=== PATIENT | male | born 1950 | race Caucasian/White ===

== ENCOUNTER 2016-08-17 11:37 | Inpatient (IN) | payer MEDICARE ==
[~2016-08-17] VITALS: Ht 182.9 cm; Wt 53.4 kg
[2016-08-17] MEDS ORDERED: PROMOD LIQUID P30 M1 PO (12:21)
[2016-08-17] MEDS ORDERED: FOLIC ACID1 MG PO (12:23)
[2016-08-17] MEDS ORDERED: VITAMIN B-1100 M1 PO (12:24)
[2016-08-17] MEDS ORDERED: VITAMIN D31000 UNI2 PO (12:24)
[2016-08-17] MEDS ORDERED: MULTIPLE VITAMI1 TA1 PO (12:25)
[2016-08-17] MEDS ORDERED: MIRALAX17 GM PO (12:26)
[2016-08-17] MEDS ORDERED: FLOMAX0.4 MG PO (12:26)
[2016-08-17] MEDS ORDERED: CELEXA10 MG PO (12:40)
[2016-08-17] MEDS ORDERED: CELEXA20 MG PO (12:41)
[2016-08-17] MEDS ORDERED: BUSPAR10 MG PO (12:46)
[2016-08-17] MEDS ORDERED: REMERON15 MG PO (12:48)
[2016-08-17] MEDS ORDERED: KLONOPIN0.5 MG PO (12:48)
[2016-08-17] MEDS ORDERED: MUCINEX600 MG PO ×2 (12:50→12:51)
[2016-08-17] MEDS ORDERED: CLARITIN 10 MG10 MG PO (12:53)
--- NOTE | 2016-08-17 13:38 | NUR ---
PT WAS ADMITTED TO [facility] FROM [facility] FOR INCREASED AGGRESSION. IT WAS REPORTED THAT THE PT WAS AGGRESSIVE TOWARDS A STAFF MEMBER AND CURSING AT ANOTHER RESIDENT. ORIENTED TO PERSON ONLY. IT WAS REPORTED THAT THE PT WAS WANDERING THE HALLWAY LOOKING FOR HIS AND CHICKENS. RANDOM DELUSIONAL STATEMENTS MADE. PT IS A DNR PER LONG-TERM RECORDS. REVIEWED CODE STATUS WITH DAUGHTER CY WONG AND HE IS A DNR. REVIEWED VISITATION HOURS AND UNIT RULES. GAVE DAUGHTER DIRECT LINE NUMBER TO UNIT AND MY OFFICE NUMBER. CODE IS "[id number]". PT IS UNSTEADY ON HIS FEET AND REQUIRES ASSISTANCE. WILL CONTINUE TO MONITOR.
[2016-08-17 15:26] VITALS: BP 104/59; BMI 15.2
--- NOTE | 2016-08-17 19:45 | NUR ---
RECEIVED IN ROOM, WALKS WITH A SHUFFLE GAIT BACK AND FORTH TO NURSES STATION OR THE BATHROOM IN HIS ROOM. HE IS ORIENTED TO SELF ONLY, WITH POOR SHORT- TERM MEMORY RECALL. PROVIDE PRESCRIBED MEDICATIONS. REDIRECT AND REORIENT NEEDED. MEDICATION COMPLIANT, WITH POOR REDIRECTING DUE TO CURRENT MENTAL STATUS. NO AGGRESSION SHOWN TO STAFF AT THIS TIME. HE IS NOT COMPREHENDING INFORMATION. WILL CONTINUE WITH PLAN OF CARE.
[2016-08-17 20:01] VITALS: BP 110/68
--- NOTE | 2016-08-18 04:53 | NUR ---
ATIVAN 0.5 MG PO GIVEN FOR ANXIETY. EKG DONE AND C/O BEING VERY NERVOUS.
[2016-08-18 07:42] VITALS: BP 112/75
[2016-08-18 07:46] LABS: BASOPHILS 0.3 % (0.0-2.0); EOSINOPHILS 1.6 % (0-7); HEMATOCRIT 36.2 % (42.0-54.0); HEMOGLOBIN 12.1 g/dL (13.5-17.5); IMMATURE GRANULOCYTES 0.3 % (0-5); LYMPHOCYTES 19.1 % (15-50); MCH 30.3 pg (26.0-34.0); MCHC 33.4 g/dL (31.0-37.0); MCV 90.5 fL (80.0-100.0); MEAN PLATELET VOLUME 9.3 fL (7.4-10.4); MONOCYTES 7.9 % (2-11); NEUTROPHILS 70.8 % (40-80); PLATELET COUNT 245 10x3/uL (130-400); RDW 14.5 % (11.5-14.5); WBC 6.7 10x3/uL (4.8-10.8)
[2016-08-18 07:54] LABS: HEMOGLOBIN A1C 5.6 % (4.8-6.0)
[2016-08-18 08:11] LABS: ALBUMIN 3.8 g/dL (3.4-5.0); ALKALINE PHOSPHATASE 65 U/L (46-116); ALT (SGPT) 24 U/L (10-68); CALC OSMOLALITY 282 mosm/kg (275-300); CARBON DIOXIDE 24.1 mmol/L (21.0-32.0); CHLORIDE - SERUM 105 mmol/L (98-107); CHOL - HDL RATIO 4.5 ratio (2.3-4.9); CHOLESTEROL, TOTAL 201 mg/dL (0-200); GLUCOSE 89 mg/dL (74-106); HDL CHOLESTEROL 45 mg/dL (32-96); LDL CHOLESTEROL 134 mg/dL (0-100); POTASSIUM - SERUM 3.8 mmol/L (3.5-5.1); PROTEIN - SERUM 7.7 g/dL (6.4-8.2); SODIUM 140 mmol/L (136-145); THYROID STIMULATING HORMONE 1.03 uIU/mL (0.36-3.74); TRIGLYCERIDE 114 mg/dL (30-200); UREA NITROGEN 26 mg/dL (7-18); eGFR NON AFRICAN AMERICAN 79 mL/min (90-120)
--- NOTE | 2016-08-18 09:28 | NUR ---
B) Patient is very confused, he can not remember from minute to minute. He ambulates with a very slow shuffle and he is unsteady. He did not sleep last night and he has said his head feels fuzzy. Patient says he needs to use the bathroom about every 5 minutes. He is on a every one hour toilet schedule, will monitor. He has been started on flomax today. I) Provide prescribed meds. R) Patient is compliant with meds and he has accepted redirection without aggression. P) Continue plan of care.
[2016-08-18 13:36] VITALS: Ht 182.9 cm; Wt 53.4 kg
[2016-08-18 14:42] LABS: APPEARANCE CLEAR (CLEAR); COLOR YELLOW (YELLOW); SPECIFIC GRAVITY 1.015 (1.005-1.020)
[2016-08-18 14:43] LABS: BACTERIA FEW /hpf (NONE SEEN); BILIRUBIN NEGATIVE (NEGATIVE); EPITHELIAL CELLS OCC /hpf (0-5); GLUCOSE NEGATIVE (NEGATIVE); KETONE NEGATIVE (NEGATIVE); LEUKOCYTE ESTERASE TRACE (NEGATIVE); NITRITE NEGATIVE (NEGATIVE); PROTEIN NEGATIVE (NEGATIVE); UROBILINOGEN NORMAL (NORMAL); WHITE CELLS - URINE OCC /hpf (0-5)
[2016-08-18 19:30] VITALS: BP 116/67
--- NOTE | 2016-08-18 21:00 | NUR ---
RECEIVED IN DAYROOM SITTING IN CHAIR, ISOLATED FROM PEERS. CALM AND COOPERATIVE WITH ASSESSMENT AND CARE. PROVIDE PRESCRIBED MEDICATIONS. REDIRECT AND REORIENT NEEDED. MEICATION COMPLIANT. WILL CONTINUE PLAN OF CARE.
[2016-08-19 06:14] LABS: RAPID PLASMA REAGIN Non Reactive (Non Reactive)
[2016-08-19 07:53] VITALS: BP 126/70
[2016-08-19 08:18] LABS: FOLATE (FOLIC ACID) - SERUM >20.0 ng/mL (>3.0)
[2016-08-19 10:17] LABS: VITAMIN D 25 HYDROXY 60.5 ng/mL (30.0-100.0)
--- NOTE | 2016-08-19 18:40 | NUR ---
B.) Alert and oriented to self only, has no insight to reason for hospitalization. I.) Administer medications and monitor compliance. Redirect for any inappropriate behavior. Reorient as need. R.) Compliant with medications, calm and pleasant, isolates on safa cooperative with care. P.) Continue with plan of care.
[2016-08-19 19:55] VITALS: BP 101/53
--- NOTE | 2016-08-20 00:23 | NUR ---
B) Recieved ambulating in the day room, alert and oriented to self, unaware of surroundings or that he is in a hospital, keeps to himself, I) Administered perscribed medications, redirected and oriented as needed, R) Medication compliant, calm and cooperative with staff, P) Continue plan of care.
[2016-08-20 09:27] VITALS: BP 108/69
--- NOTE | 2016-08-20 09:30 | NUR ---
B) Patient is awake and alert, he is oriented to his name only, he is confused asks the same question over and over. He can not comprehend, he is independent to ambulate, but he shuffles and he is unsteady. I) Provide prescribed meds. R) Patient is compliant with meds and he usually redirects without any agitation. P) Continue plan of care.
[2016-08-20 19:45] VITALS: BP 141/79
--- NOTE | 2016-08-21 03:08 | NUR ---
B) Recieved sitting in the day room, alert and oriented to self, confused and disoriented, friendly to staff, unable to redirect due to not being able to process information, I) Administered perscribed medications, PRN Ativan 0.5 mg PO given at 2159, R) Medication compliant, up several times at night, wanders P) Continue plan of care, continue to monitor.
[2016-08-21 08:01] VITALS: BP 123/84
--- NOTE | 2016-08-21 13:21 | NUR ---
Patients sister called to check on him and did give her an update. Patient remains confused with poor short term memory recall, did not sleep well last night, but he has not shown any agitation or aggression today. Sister verbalized understanding and thanked us for our care.
--- NOTE | 2016-08-21 14:00 | NUR ---
PATIENT'S SPOUSE CALLED AND CHECKED ON HER SPOUSE AND THEN SHE STARTED TELLING ME ABOUT HER BREAKING HER HIP AND SAID "THAT'S WHEN HE WENT OFF THE DEEP END" SPOUSE CONTINUED DISCUSSING THE BREAK IN HER HIP AND THAT SHE WAITED FOR A DAY BEFORE SHE WENT TO THE DR. AND THEN SHE HAD TO WAIT SEVERAL HOURS FOR AN XRAY. CONTINUED FOR AWHILE UNTIL I EXPLAINED THAT I NEEDED TO GO TO GIVE MEDICATIONS, SHE SAID "OK I KNOW YOU'RE BUSY, I'LL LET YOU GO".
--- NOTE | 2016-08-21 14:30 | NUR ---
PATIENT IS AWAKE, HE IS VERY CONFUSED, POOR SHORT TERM MEMORY RECALL, HE IS VERY ANXIOUS, UP AND DOWN FROM THE CHAIR, GOING TO THE BATHROOM EVERY 5-10 MINUTES AND WHEN STAFF GO WITH HIM HE IS NOT ABLE TO VOID URINE. HE SAYS HE HURTS, GETS FULL. PATIENT IS ON MEDICATION FOR THIS, BUT HE IS FORGETFUL AND GETS FOCUSED ON ONE THING AND TALKS AND TALKS ABOUT IT. HE IS REPETITIVE IN HIS QUESTIONS EVEN IF STAFF JUST REDIRECTED HIM IN THE SAME BREATH. I) PROVIDE PRESCRIBED MEDS, REORIENTATE TO REALITY, PROVIDE EVERY ONE HOUR BLADDER TRAINING SCHEDULE. R) PATIENT BELIEVES HE IS AT WORK AND HE ASKS FREQUENTLY IF HE IS GOING TO WORK OVER ON A 16 HOUR SHIFT. REDIRECTED TO REALITY THAT HE IS A PATIENT AND HE IS IN THE HOSPITAL. PATIENT AMBULATES, BUT HE IS UNSTEADY HAS A SHUFFLING GAIT. PATIENT IS COMPLIANT WITH MEDICATION. P) CONTINUE PLAN OF CARE.
--- NOTE | 2016-08-21 16:49 | NUR ---
PATIENT IS ANXIOUS, HE KEEPS POPPING UP OUT OF HIS SEAT SAYING HE HAS TO PEE, EXPLAINED TO PATIENT THAT HE IS ON AN EVERY ONE HOUR BLADDER SCHEDULE, PATIENT IS SHAKING AND UPSET, ASKS ABOUT A S[place]IAGO AND HIS AND THE TOILET AND HAVING A BED AND HAVING SOMETHING TO EAT. PROVIDED PATIENT ATIVAN 0.5 MG PO GIVEN NOW.
--- NOTE | 2016-08-21 17:10 | NUR ---
PATIENT IS EATING DINNER IN THE DINING ROOM, HE IS EATING WELL AND CALMER AT THIS TIME.
[2016-08-21 19:22] VITALS: BP 115/68
--- NOTE | 2016-08-21 21:34 | NUR ---
RECEIVED IN DAYROOM. SETTING IN CHAIR KEEPING TO HIMSELF. CALM AND COOPERATIVE WITH CARE AND ASSESSMENT. NO SIGNS OF AGGRESSION. REDIRECT AND REORIENT NEEDED. REINFORCE FALLS SAFETY. PM MEDS GIVEN ORDERED. RESTING IN BED EYES CLOSED AT THIS TIME. CONTINUE PLAN OF CARE
[2016-08-22 09:11] VITALS: BP 133/84
--- NOTE | 2016-08-22 10:51 | HP ---
PATIENT: DRE ÁLVAREZ MEDICAL RECORD: [id number] ACCOUNT: [id number] LOCATION:[facility] : 50 ADMISSION DATE: 08/17/16 HISTORY AND PHYSICAL EXAMINATION Initial Psychiatric Workup IDENTIFYING DATA: [place] [facility] [place] for this 66-year-old white male. HISTORY OF PRESENT ILLNESS: This patient has a preexisting diagnosis of Alzheimer dementia and he is currently a resident of [facility] in [place]. The patient has been housed there for some period of time, but lately his behavior has worsened. He has become aggressive toward staff and even towards other residents and because of this, the patient was transferred for further evaluation from a medical and psychiatric standpoint. The patient has a long past history of alcoholism. He recently has been showing some unsteady gait and complains occasionally of dizziness. Because of worsening dementia and aggressive behavior, the patient is now admitted. PAST MEDICAL HISTORY: Significant for benign prostatic hypertrophy, hyperlipidemia, vitamin D deficiency, seizure disorder. MEDICATIONS: At the time of admission included folic acid, vitamin D, thiamine, multivitamins, MiraLax, Flomax, BuSpar, Klonopin, Remeron and Mucinex. FAMILY HISTORY: Noncontributory. SOCIAL HISTORY: The patient is . He has 2 daughters. According to one of his daughters, the may have some mental health issues of her own. The patient had been living near [place], [place], but as mentioned, has been transferred for care home care in the past. No history of illicit drug use. ALLERGIES: None listed. MENTAL STATUS: On interview, the patient is clearly confused. He is not aware that he is in a hospital. When asked about him having been in [place] in a care home, he replied that he has never been to [place]. His mood is slightly anxious. Affect is very shallow. Speech is quite terse and they are frequent word finding pauses as well as tangentiality. There is some mild echolalia. Gait is noted to be unsteady and shuffling. Content of thought is apparently positive for auditory hallucinations. The patient states that he hears his 's voice. Also, possible visual hallucinosis as well. He is oriented to person only. Memory is impaired for remote, intermediate and short-term events. Concentration is exceedingly poor. Judgment and insight are both lacking. DIAGNOSES: AXIS I: Dementia associated with alcoholism, ICD code F03.91. AXIS II: No diagnosis. AXIS III: Benign prostatic hypertrophy, hyperlipidemia, history of seizure disorder. AXIS IV: Moderate. AXIS V: 36. HISTORY AND PHYSICAL [id number] DRE ÁLVAREZ PLAN: 1. The patient is admitted for further evaluation from a medical and psychiatric standpoint. 2. Daily supportive therapy. 3. We will coordinate with family regarding aftercare. TRANSINT:[id number] Voice Confirmation ID: [id number] DOCUMENT ID: [id number] NANCY MICHELLE III, MD at 1051 CC: [id number] DICTATION DATE: 08/18/16 1230 RECYCLING TECH: 08/18/16 1337 ADM IN [place] [id number] [place] [id number]
--- NOTE | 2016-08-22 11:40 | NUR ---
P.) Alert and oriented to name only, has no insight to reason for hospitalization. I.) Administer medications and monitor compliance, monitor for any aggresive behavior. R.) Compliant with medications, poor short term memory, will repeat same statement or question and becomes fixated on using bathroom every 15 minuted, forgets he has went to bathroom. Is redirectable but unable to retain information. No aggression. P.) Continue plan of care.
--- NOTE | 2016-08-22 14:45 | PN ---
PATIENT:DRE ÁLVAREZ MEDICAL RECORD: [id number] LOCATION:[facility] ADMISSION DATE: 08/17/16 PROGRESS NOTE DATE OF SERVICE: 08/19/2016 SUBJECTIVE: The patient's case was discussed with staff. He has no new complaint. OBJECTIVE: The patient is disorganized with poor insight about his condition. He is quite anxious. ASSESSMENT: No change in diagnoses. PLAN: Current medicines and therapies have been reviewed, both will be maintained. His long-term prognosis is guarded. TRANSINT:[id number] Voice Confirmation ID: [id number] DOCUMENT ID: [id number] SARAH MCCLURE MD at 1445 CC: [id number] DICTATION DATE: 08/19/16 1351 PASSENGER SERVICE SUPERVISOR: 08/19/16 1531 ADM IN [address] [address]
[2016-08-22 20:34] VITALS: BP 133/80
--- NOTE | 2016-08-23 02:46 | NUR ---
RECEIVED IN HALLWAY. WALKING FROM HIS ROOM TO NURSES STATION. CALM AND COOPERATIVE WITH CARE AND ASSESSMENT. CONFUSED. VERY SHORT MEMORY. NO SIGNS OF AGGRESSION. REDIRECT AND REORIENT NEEDED. PM MEDS GIVEN ORDERED. RESTING IN BED WITH EYES CLOSED AT THIS TIME. CONTINUE PLAN OF CARE
--- NOTE | 2016-08-23 10:18 | PN ---
PATIENT:DRE ÁLVAREZ MEDICAL RECORD: [id number] LOCATION:[facility] ADMISSION DATE: 08/17/16 PROGRESS NOTE DATE OF SERVICE: 08/22/2016 SUBJECTIVE: No new complaint. OBJECTIVE: Staff reports the patient has been doing fairly well over the weekend. He does get anxious from time to time, but is fairly easily redirected. On exam, the patient remains quite confused. He is oriented only to person. He is pleasant on approach. Speech remains quite terse and vague. Content of thought is negative for clear cut psychosis. Memory is impaired in all phases. ASSESSMENT: Alcohol-related dementia. PLAN: 1. Continue Klonopin 1 mg t.i.d. and Namenda 5 mg b.i.d. 2. Discontinue BuSpar. 3. Continue other medications and supportive therapy. TRANSINT:[id number] Voice Confirmation ID: [id number] DOCUMENT ID: [id number] NANCY MICHELLE III, MD at 1018 CC: [id number] DICTATION DATE: 08/22/16 1201 SYSTEMS ADMIN: 08/22/16 1318 ADM IN [place] [id number] [place] [address]
--- NOTE | 2016-08-23 10:24 | NUR ---
Nutrition Follow Up: Chart reviewed. Diet: Regular; Ensure with meals PO Intake: 97% (9 meal avg) +BM 08/18/16 - no BM x 5 days Wt gain of 13# since admit? No new labs Meds: Megace, Thiamine, MV, Folic Acid Pt with excellent po intake at this time. Rec continue current diet, supplement regimen. Rec bowel regimen. Rec continue appetite stimulant. RD following.
[2016-08-23 12:33] VITALS: BP 131/89
--- NOTE | 2016-08-23 13:00 | NUR ---
B.) Alert and oriented to name only . I.) Administer medications and monitor compliance. redirect and reorient as need. R.) Compliant with medications, no aggressive or threatening behavior, calm and cooperative. Has short term memory. Safety maintained. P.) Continue plan of care.
[2016-08-23 20:00] VITALS: BP 126/84
--- NOTE | 2016-08-23 21:39 | NUR ---
RECEIVED IN DAYROOM. SETTING IN CHAIR WITH PEERS AT HIS SIDE. VERY CONFUSED. CAN NOT REMEMBER INSTRUCTIONS. CALM AND COOPERATIVE WITH CARE AND ASSESSMENT. NO SIGNS OF AGGRESSION. REDIRECT AND REORIENT NEEDED. PM MEDS GIVEN ORDERED. RESTING IN BED EYES CLOSED AT THIS TIME. CONTINUE PLAN OF CARE
[2016-08-24 08:08] VITALS: BP 110/72
--- NOTE | 2016-08-24 10:05 | NUR ---
B.) Alert and oriented to name only, poor short term memory. I.) Administer medications and monitor compliance, redirect and reorient as need. Monitor safety. R.) Compliant with medications, cooperative with care with no aggressive or threatening behavior. Unable to reorient, poor short term memory, unable to retain information, repeative actions. Safety maintained. P.) Continue plan of care.
--- NOTE | 2016-08-24 10:36 | PN ---
PATIENT:DRE ÁLVAREZ MEDICAL RECORD: [id number] LOCATION:[facility] ADMISSION DATE: 08/17/16 PROGRESS NOTE DATE OF SERVICE: 08/23/2016 SUBJECTIVE: No new complaint. OBJECTIVE: The patient continues to exhibit a great deal of anticipatory anxiety. He obsesses over urination and other routine matters. He is generally cooperative and pleasant, but is anxious virtually all of the time. On exam, mood is indeed anxious. Affect is rather shallow. Speech is repetitive. Content of thought is focused on somatic concerns. Sensorium shows no change. ASSESSMENT: No change in diagnosis. PLAN: 1. We will add an SSRI to aid in anxiety control -- we will start Lexapro 10 mg daily. 2. Continue other medications as currently ordered. 3. Continue supportive therapy. TRANSINT:[id number] Voice Confirmation ID: [id number] DOCUMENT ID: [id number] NANCY MICHELLE III, MD at 1036 CC: [id number] DICTATION DATE: 08/23/16 1124 CEMENT CONVEYOR OPERATOR: 08/23/16 1154 ADM IN [facility] [address] [place] [address]
[2016-08-24 20:13] VITALS: BP 117/70
--- NOTE | 2016-08-25 00:28 | NUR ---
B) Recieved in patient room, alert and oriented to self, calm and very confused with no short term memory, I) Administered perscribed medications, redirected and oriented as needed, R) medication compliant, resting quietly in bed, P) Continue plan of care, continue to monitor.
--- NOTE | 2016-08-25 05:05 | PN ---
PATIENT:DRE ÁLVAREZ MEDICAL RECORD: [id number] LOCATION:[facility] ADMISSION DATE: 08/17/16 PROGRESS NOTE DATE OF SERVICE: 08/24/2016 SUBJECTIVE: No new complaint. OBJECTIVE: Staff reports the patient appears to be calmer. He is not quite as obsessed with bodily functions as he had been 24 hours ago. He has been cooperative with staff regarding medication. On exam, mood is pleasant. Affect is still shallow. Speech is terse. Content of thought still focuses mainly on somatic concerns, but not in the same overly obsessional fashion that was noted previously. Sensorium is unchanged. ASSESSMENT: No change in diagnosis. PLAN: 1. Continue all current medications. 2. Continue supportive therapy. TRANSINT:[id number] Voice Confirmation ID: [id number] DOCUMENT ID: [id number] NANCY MICHELLE III, MD at 0505 CC: [id number] DICTATION DATE: 08/24/16 1104 ICE CREAM MACHINE OPERATOR: 08/24/16 1204 ADM IN [place] [id number] [place] [id number]
[2016-08-25 07:43] VITALS: BP 115/72
--- NOTE | 2016-08-25 09:30 | NUR ---
PATIENT IS AWAKE, ORIENTED TO SELF ONLY, HE GETS ON ONE SUBJECT AND REPEATS HIMSELF OVER AND OVER, HE NEEDS MUCH REDIRECTION WITH TOILETING SCHEDULE. PATIENT IS CONFUSED AND HAS POOR SHORT TERM MEMORY RECALL. HE WILL TRY TO USE THE BATHROOM EVERY 5 MINUTES, BUT DOES NOT VOID, JUST WALKS IN THE BATHROOM AND SAYS HE NEEDS TO GO.
--- NOTE | 2016-08-25 12:56 | NUR ---
PATIENTS SISTER CALLED TO CHECK ON HIM, REPORTED THAT PATIENT IS CALM AND EATING WELL.
--- NOTE | 2016-08-25 15:54 | NUR ---
B) PATIENT IS AWAKE AND ALERT, HE IS ORIENTED TO SELF, HE HAS POOR SHORT TERM MEMORY RECALL, HE IS CONFUSED, BUT HE IS LESS ANXIOUS TODAY THAN HE HAS BEEN, HE HAS A SHUFFLING GAIT, USES A WALKER IF PROMPTED. I) PROVIDE PRESCRIBED MEDS. R) PATIENT IS COMPLIANT WITH MEDS AND HE IS REDIRECTING EASIER TODAY, NO AGGRESSION SEEN. P) CONTINUE PLAN OF CARE.
[2016-08-25 19:30] VITALS: BP 138/89
[2016-08-26 08:36] VITALS: BP 124/74
--- NOTE | 2016-08-26 10:37 | PN ---
PATIENT:DRE ÁLVAREZ MEDICAL RECORD: [id number] LOCATION:[facility] ADMISSION DATE: 08/17/16 PROGRESS NOTE DATE OF SERVICE: 08/25/2016 SUBJECTIVE: No new complaint. OBJECTIVE: Staff reports the patient continues to do well. He is much less anxious and restless. On exam, mood is euthymic. Affect is bland. Speech is terse. Content of thought focused on somatic concerns. Sensorium is unchanged. ASSESSMENT: No change in diagnosis. PLAN: 1. Maintain all current medications. 2. Continue supportive therapy. TRANSINT:[id number] Voice Confirmation ID: [id number] DOCUMENT ID: [id number] NANCY MICHELLE III, MD at 1037 CC: [id number] DICTATION DATE: 08/25/16 1249 PARTS WASHER: 08/25/16 1315 ADM IN [place] [id number] [place] [address]
--- NOTE | 2016-08-26 12:37 | NUR ---
(B)RECEIVED PATIENT SITTING IN A CHAIR AT THE NURSES STATION. ORIENTED TO SELF ONLY RELATING "CAME FROM HOME MY MOMMA AND DADDY'S HOUSE." POOR INSIGHT INTO THE REASON FOR HOSPITALIZATION RELATING "GET EDUCATION ON LIFE." PREOCCUPIED WITH GOING TO THE BATHROOM AND WHERE THE BATHROOM IS LOCATED. PATIENT WILL PLACE HIS HANDS ON BOTH SIDES OF HIS FACE HE SPEAKS. STUTTERS AT TIMES. COOPERATIVE WITH STAFF REQUEST. (I)ADMINSITER MEDS AND MONITOR COMPLIANCE. REORIENT NEEDED. (R)MED COMPLIANT. REORIENTS HOWEVER REQUIRES FREQUENT REORIENTATION DUE TO IMPAIRED ABILITY TO RETAIN INFORMATION. (P)CONTINUE POC AND MAINTAIN FALL PRECAUTIONS.
--- NOTE | 2016-08-26 18:12 | PN ---
PATIENT:DRE ÁLVAREZ MEDICAL RECORD: [id number] LOCATION:[facility] ADMISSION DATE: 08/17/16 PROGRESS NOTE DATE OF SERVICE: 08/26/2016 SUBJECTIVE: No new complaint. OBJECTIVE: The patient shows occasional irritability. He had been overall has done well. He is tolerating medications without difficulty, much less anxious. On exam, mood euthymic. Affect bland. Speech is terse. Content of thought focuses on somatic concerns. Sensorium is unchanged. ASSESSMENT: No change in diagnosis. PLAN: 1. Continue present medications. 2. Continue supportive therapy. TRANSINT:[id number] Voice Confirmation ID: [id number] DOCUMENT ID: [id number] NANCY MICHELLE III, MD at 1812 CC: [id number] DICTATION DATE: 08/26/16 1140 CUFF MATCHER: 08/26/16 1317 ADM IN [facility] [address] [place] [address]
[2016-08-26 19:30] VITALS: BP 111/64
--- NOTE | 2016-08-26 23:30 | NUR ---
RECEIVED IN DAYROOM SITTING IN CHAIR. CALM AND COOPERATIVE WITH CARE AND ASSESSMENT. SEE NURSES FLOW SHEET FOR MORE DETAILED INFORMATION. WILL COMTINUE WITH PLAN OF CARE.
[2016-08-27 10:37] VITALS: BP 123/75
--- NOTE | 2016-08-27 13:06 | NUR ---
SPOKE WITH PATIENT'S SISTER. UPDATE ON CONDITION GIVEN AND QUESTIONS ANSWERED. VERBALIZED UNDERSTANDING.
--- NOTE | 2016-08-27 15:05 | NUR ---
RECEIVED THIS AM SITTING IN CHAIR IN HALLWAY AT NURSES STATION.ORIENTED TO SELF ONLY.HAS SHORT TERM MEMORY LOSS.REPEATS HIMSELF OVER AND OVER .AMB.WITH SHUFFLE AND WALKER.ENCOURAGED TO KEEP WALKER DOWN ON IT'S WHEELS.WILL CONTINUE WITH PLAN OF CARE,MONITOR FOR SAFETY AND CHANGES.
[2016-08-27 20:00] VITALS: BP 111/58
--- NOTE | 2016-08-28 01:56 | NUR ---
B) Recieved sitting in a chair in the day room, alert and oriented to self , keeps to himself, quiet and calm, I) Administered perscribed, redirected and oriented as needed, R) Medication compliant, resting quietly now, P) Continue plan of care, continue to monitor.
--- NOTE | 2016-08-28 08:31 | NUR ---
B) Patient is awake and oriented to self only, he has poor short term memory and he asks the same question in repetition every couple of minutes. He says he needs to use the bathroom every 5 minutes. I) Provide prescribed meds, redirect to bathroom schedule with explaination as needed. R) Patient requires multiple prompts to stay on toileting schedule. Patient has not shown any aggression or anxiety. P) Continue plan of care.
[2016-08-28 09:55] VITALS: BP 110/62
--- NOTE | 2016-08-28 17:39 | NUR ---
Patients sister called and checked on him today. Patient is doing well, he has not shown any aggression or anxiety today.
[2016-08-28 19:30] VITALS: BP 124/76
--- NOTE | 2016-08-28 22:24 | NUR ---
RECEIVED IN DAYROOM. SETTING IN RECLINER WITH PEERS AT HIS SIDE. CALM AND COOPERATIVE WITH CARE AND ASSESSMENT. NO SIGNS OIF AGGRESSION. REDIRECT AND REORIENT NEEDED. PM MEDS GIVEN ORDERED. RESTING EYES CLOESED AT THIS TIME . CONTINUE PLAN OF CARE
[2016-08-29 10:26] VITALS: BP 143/82
--- NOTE | 2016-08-29 10:30 | NUR ---
B.) Alert and orient to name, states no to knowing place and time. I.) Adm prescribed medications and monitor compliance. Redirect and reorient as need. R.) Compliant with medications, pleasant and cooperative with care. P.)Continue plan of care.
[2016-08-29] MEDS ORDERED: MEGACE40 MG PO (11:45)
[2016-08-29] MEDS ORDERED: LEXAPRO10 MG PO (11:46)
[2016-08-29] MEDS ORDERED: NAMENDA5 MG PO (11:46)
[2016-08-29] MEDS ORDERED: KLONOPIN1 MG PO (11:46)
[2016-08-29 20:26] VITALS: BP 132/75
--- NOTE | 2016-08-29 21:55 | NUR ---
RECEIVED IN BEDROOM. LAYING IN BED WITH EYES CLOSED. RESPONDS TO VOICE. CALM AND COOPERATIVE WITH CARE AND ASSESSMENT. NO SIGNS OF AGGRESSION. ENCOURAGE TO ASK FOR ASSIST TO BATHROOM. PM MEDS GIVEN ORERED. RESTING EYES CLOSED AT THIS TIME. CONTINUE PLAN OF CARE
[2016-08-30 10:14] VITALS: BP 116/66
--- NOTE | 2016-08-30 10:40 | PN ---
PATIENT:DRE ÁLVAREZ MEDICAL RECORD: [id number] LOCATION:[facility] ADMISSION DATE: 08/17/16 PROGRESS NOTE DATE OF SERVICE: 08/29/2016 SUBJECTIVE: No new complaint. OBJECTIVE: The patient has done well over the last several days. No new problems noted. Behavior has been under very good control. On exam, mood is euthymic. Affect bland. Speech is terse. Content of thought is negative for overt psychosis. Sensorium is unchanged. ASSESSMENT: No change in diagnosis. PLAN: 1. Continue current treatment plan. 2. Anticipate discharge tomorrow. TRANSINT:[id number] Voice Confirmation ID: [id number] DOCUMENT ID: [id number] NANCY MICHELLE III, MD at 1040 CC: [id number] DICTATION DATE: 08/29/16 1141 PICK OUT HAND: 08/29/16 1907 ADM IN [facility] [address] [place] [address]
--- NOTE | 2016-08-30 10:48 | NUR ---
Nutrition Follow Up: Chart reviewed. Noted pt scheduled to d/c today. Diet: Regular; Ensure TID PO Intake: 91% (9 meal avg) Meds and labs noted - Pt is on Megace +BM Pt with excellent po intake. Rec continue current diet and supplement regimen. Rec continue Megace. RD following.
--- NOTE | 2016-08-30 12:16 | NUR ---
B.) Received this am alert and oriented to name only, patient states "I dont know to place and time." very quiet and pleasant. I.) Administer medications and monitor compliance, redirect and reorient as need. Monitor safety. R.) Compliant with medications. Cooperative with care, no aggression. P) Continue with plan of care to discharge today.
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
== END 2016-08-30 21:46 | DRG 897 ==
LOC: D.PSYCH 11:37
PROVIDERS: ADMIT Psychiatry & Neurology Psychiatry
DX: F10.27 Alcohol dependence with alcohol-induced persisting dementia (principal); E46 Unspecified protein-calorie malnutrition; G40.909 Epilepsy, unspecified, not intractable, without status epilepticus; E78.5 Hyperlipidemia, unspecified; N40.0 Benign prostatic hyperplasia without lower urinary tract symptoms; F41.8 Other specified anxiety disorders; G47.00 Insomnia, unspecified; K59.00 Constipation, unspecified; E55.9 Vitamin D deficiency, unspecified; Z74.09 Other reduced mobility

== ENCOUNTER 2018-03-15 03:49 | Inpatient (IN) | payer MEDICARE ==
[~2018-03-15] VITALS: Ht 172.7 cm; Wt 64.1 kg
--- NOTE | ~2018-03-15 | PN ---
PATIENT:DRE ÁLVAREZ MEDICAL RECORD: [id number] LOCATION:GORGE Shane ADMISSION DATE: 03/15/18 PROGRESS NOTE DATE OF SERVICE: 03/18/2018 SUBJECTIVE: The patient's case was discussed with staff. He has no new complaint. OBJECTIVE: The patient is in good behavioral control with limited insight about his condition. He does tolerate his medicines well. Eye contact is fair. Concentration is fair. ASSESSMENT: No change in diagnoses. PLAN: The patient is taking Celexa with which I think has a questionable clinical indication. Medicine is inexpensive and well tolerated, but in an effort to streamline his medication regimen to only medicines that have clear and demonstrable beneficial effects, I am going to discontinue the Celexa. He will be monitored for clinical changes associated with this discontinuation. TRANSINT:[id number] Voice Confirmation ID: [id number] DOCUMENT ID: [id number] SARAH MCCLURE MD at 1320 CC: [id number] DICTATION DATE: 03/18/18 1104 MONKEY KEEPER: 03/18/18 1145 ADM IN [facility] [address] [id number]
--- NOTE | ~2018-03-15 | PN ---
PATIENT:DRE ÁLVAREZ MEDICAL RECORD: [id number] LOCATION:GORGE Jose Rafael112 ADMISSION DATE: 03/15/18 PROGRESS NOTE DATE OF SERVICE: 03/24/2018 SUBJECTIVE: The patient's case was discussed with staff. He has no new complaint. OBJECTIVE: The patient slept 9 hours last night, which is encouraging. His appetite continues to be poor with him only eating about half of the food that was presented to him yesterday. He has not been aggressive. In fact, he has been quite pleasant. ASSESSMENT: No change in diagnoses. PLAN: The patient will be maintained on current medicines, which I have reviewed. He is not going to be allowed to return to the long term in [place] because of his behaviors. I think his behaviors are better and he could be reasonably managed on a dementia unit, but they are not going to accept him. The director social welfare is looking for another placement for him and hopefully that will be something that can happen in the next few days. TRANSINT:[id number] Voice Confirmation ID: [id number] DOCUMENT ID: [id number] SARAH MCCLURE MD at 0949 CC: [id number] DICTATION DATE: 03/24/1814 GRANITE COUNTERTOP INSTALLER: 03/24/18 0837 ADM IN [place] [id number] [place] [id number]
--- NOTE | ~2018-03-15 | PN ---
PATIENT:DRE ÁLVAREZ MEDICAL RECORD: [id number] LOCATION:GORGE Mantilla112 ADMISSION DATE: 03/15/18 PROGRESS NOTE DATE OF SERVICE: 03/29/2018 SUBJECTIVE: The patient's case was discussed with staff. He has no new complaint. OBJECTIVE: The patient is poorly oriented. He is pleasant and cooperative and has not been aggressive. ASSESSMENT: No change in diagnoses. PLAN: The patient will be transitioned out of the hospital today. He is going to go to a longterm in [facility] that is closer to his mother. TRANSINT:[id number] Voice Confirmation ID: [id number] DOCUMENT ID: [id number] SARAH MCCLURE MD at 1710 CC: [id number] DICTATION DATE: 03/29/18 1405 SURGICAL CLINICAL REVIEWER: 03/29/18 1412 DIS IN 03/29/18 [place] [id number] [place] [address]
--- NOTE | ~2018-03-15 | PN ---
PATIENT:DRE ÁLVAREZ MEDICAL RECORD: [id number] LOCATION:GORGE JiOsbaldoEla ADMISSION DATE: 03/15/18 PROGRESS NOTE DATE OF SERVICE: 03/21/2018 SUBJECTIVE: The patient's case was discussed with staff. He has no new complaint. OBJECTIVE: The patient denies intent to harm himself or others. He does tolerate his medicines well. Eye contact is poor. He is not eating very well. ASSESSMENT: No change in diagnoses. PLAN: Brief supportive and educational interventions were made. Long-term prognosis is guarded. TRANSINT:[id number] Voice Confirmation ID: [id number] DOCUMENT ID: [id number] SARAH MCCLURE MD at 0849 CC: [id number] DICTATION DATE: 03/21/18 1549 REPAIR MANAGER: 03/21/18 1823 ADM IN [place] [id number] [place] [id number]
--- NOTE | ~2018-03-15 | PN ---
PATIENT:DRE ÁLVAREZ MEDICAL RECORD: [id number] LOCATION:GORGE Mantilla112 ADMISSION DATE: 03/15/18 PROGRESS NOTE DATE OF SERVICE: 03/26/2018 SUBJECTIVE: The patient's case was discussed with staff. He has no new complaint. OBJECTIVE: The patient denies intent to harm himself or others. He tolerates his medicines well. Eye contact is fair. Concentration is fair. He has not been aggressive. ASSESSMENT: No change in diagnoses. PLAN: The long term in [place] has turned him down because of his behaviors. Other resources or placement is being sought. The patient's Megace seems to be working reasonably well as his appetite has improved. I know he is taking a large dose of Klonopin, but he has a history of alcoholism and has a tolerance to it and it is keeping him calm without making him sedated. TRANSINT:[id number] Voice Confirmation ID: [id number] DOCUMENT ID: [id number] SARAH MCCLURE MD at 1402 CC: [id number] DICTATION DATE: 03/26/18 1430 COLOR PRINTER OPERATOR: 03/26/18 1504 ADM IN [facility] [address] [place] [address]
--- NOTE | ~2018-03-15 | PN ---
PATIENT:DRE ÁLVAREZ MEDICAL RECORD: [id number] LOCATION:GORGE Shane ADMISSION DATE: 03/15/18 PROGRESS NOTE DATE OF SERVICE: 03/25/2018 SUBJECTIVE: The patient's case was discussed with staff. He has no new complaint. OBJECTIVE: The patient is in good behavioral control. He has poor insight about his condition. He has not been verbally aggressive or physically aggressive today. ASSESSMENT: No change in diagnoses. PLAN: Supportive and educational interventions were made. Long-term prognosis is guarded. Hopefully, placement can be found for him at a long term soon. TRANSINT:[id number] Voice Confirmation ID: [id number] DOCUMENT ID: [id number] SARAH MCCLURE MD at 1427 CC: [id number] DICTATION DATE: 03/25/18 1021 SHOPPER'S AIDE: 03/25/18 1252 ADM IN [place] [id number] [place] [id number]
--- NOTE | ~2018-03-15 | PN ---
PATIENT:DRE ÁLVAREZ MEDICAL RECORD: [id number] LOCATION:GORGE Mantilla112 ADMISSION DATE: 03/15/18 PROGRESS NOTE DATE OF SERVICE: 03/22/2018 SUBJECTIVE: The patient's case was discussed with staff. He has no new complaint. OBJECTIVE: The patient is in good behavioral control. He is partially oriented. He has not been aggressive. ASSESSMENT: No change in diagnoses. PLAN: The patient's referring residential is not accepting him back. It is my understanding they are no longer going to have a dementia eduardo, but that is the situation and they are again not going to have him return. He is calm. He certainly is not oversedated even though he is taking a substantial amount of Klonopin, but that is the dose that he came to us on and I am not going to change it since he is not oversedated and not restless or irritable. I will not increase it, but at this point, I am not going to change it. A residential in [place] is considering him and he may well be transferred there soon. TRANSINT:[id number] Voice Confirmation ID: [id number] DOCUMENT ID: [id number] SARAH MCCLURE MD at 1223 CC: [id number] DICTATION DATE: 03/22/18 1344 RETAIL SALES VITAMIN CONSULTANT: 03/22/18 1619 ADM IN [place] [id number] [place] [address]
--- NOTE | ~2018-03-15 | PN ---
PATIENT:DRE ÁLVAREZ MEDICAL RECORD: [id number] LOCATION:GORGE Mantilla112 ADMISSION DATE: 03/15/18 PROGRESS NOTE DATE OF SERVICE: 03/19/2018 SUBJECTIVE: The patient's case was discussed with staff. He has no new complaint. OBJECTIVE: The patient has euthymic mood and no thoughts of self-harm. His says she thinks he is improved and is not afraid of him and wants him to come home. ASSESSMENT: No change in diagnoses. PLAN: The patient will be transitioned out of the hospital today. Follow up will be with his primary care physician. Long-term prognosis is guarded. TRANSINT:[id number] Voice Confirmation ID: [id number] DOCUMENT ID: [id number] SARAH MCCLURE MD at 1508 CC: [id number] DICTATION DATE: 03/19/18 1448 SLOOP CAPTAIN: 03/19/18 1639 ADM IN [place] [id number] [place] [address]
--- NOTE | ~2018-03-15 | PN ---
PATIENT:DRE ÁLVAREZ MEDICAL RECORD: [id number] LOCATION:GORGE Jose Rafael112 ADMISSION DATE: 03/15/18 PROGRESS NOTE DATE OF SERVICE: 03/20/2018 SUBJECTIVE: The patient's case was discussed with staff. He has no new complaint. OBJECTIVE: The patient is in good behavioral control with limited insight about his condition. He tolerates his medicines well. ASSESSMENT: No change in diagnoses. PLAN: Supportive and educational interventions were made. The patient has not been aggressive today. Unfortunately, we are going to have to find some other placement since the [facility] in [place] is not willing to take him back. TRANSINT:[id number] Voice Confirmation ID: [id number] DOCUMENT ID: [id number] SARAH MCCLURE MD at 1520 CC: [id number] DICTATION DATE: 03/20/18 1535 GOLF COURSE MECHANIC: 03/20/18 1629 ADM IN [place] [id number] [place] [address]
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
--- NOTE | ~2018-03-15 | PN ---
PATIENT:DRE ÁLVAREZ MEDICAL RECORD: [id number] LOCATION:GORGE Shane ADMISSION DATE: 03/15/18 PROGRESS NOTE DATE OF SERVICE: 03/23/2018 SUBJECTIVE: The patient's case was discussed with staff. He has no new complaint. OBJECTIVE: The patient is in good behavioral control with limited insight about his condition. He tolerates his medicines well. Eye contact is fair. ASSESSMENT: No change in diagnoses. PLAN: Brief supportive and educational interventions were made. The patient has not been aggressive. He is easily redirected. I anticipate he can be transitioned out of the hospital if placement can be found. The detention that sent him to us for aggressive behavior is not going to accept him back. At this point, the oncology social worker is referring him to a detention in [place]. TRANSINT:[id number] Voice Confirmation ID: [id number] DOCUMENT ID: [id number] SARAH MCCLURE MD at 0742 CC: [id number] DICTATION DATE: 03/23/18 1446 ATOMIC SPECTROSCOPIST: 03/23/18 1520 ADM IN [place] [id number] [place] [address]
--- NOTE | ~2018-03-15 | PN ---
PATIENT:DRE ÁLVAREZ MEDICAL RECORD: [id number] LOCATION:GORGE Mantilla112 ADMISSION DATE: 03/15/18 PROGRESS NOTE DATE OF SERVICE: 03/28/2018 SUBJECTIVE: The patient's case was discussed with staff. He has no new complaint. OBJECTIVE: The patient is in good behavioral control, but severely impaired cognitively. He has very limited insight about his situation. ASSESSMENT: No change in diagnoses. PLAN: The patient has been accepted by the [facility] in [place], [place]. I am going to discharge him for admission to that [facility] tomorrow. I think this is a good placement. This particular mcfp has a dedicated dementia unit and it is in close proximity to his mother who can visit him some. TRANSINT:[id number] Voice Confirmation ID: [id number] DOCUMENT ID: [id number] SARAH MCCLURE MD at 1329 CC: [id number] DICTATION DATE: 03/28/18 1339 PAPERBOARD BOX MAKER: 03/28/18 1433 ADM IN [place] [id number] [place] [address]
--- NOTE | ~2018-03-15 | PN ---
PATIENT:DRE ÁLVAREZ MEDICAL RECORD: [id number] LOCATION:GORGE Shane ADMISSION DATE: 03/15/18 PROGRESS NOTE DATE OF SERVICE: 03/16/2018 SUBJECTIVE: The patient's case was discussed with staff. He has no new complaint. OBJECTIVE: The patient denies intent to harm himself or others. He is in good behavioral control. He is severely impaired cognitively. He has not been eating very well, but when asked about this, says that he is eating well. ASSESSMENT: No change in diagnoses. PLAN: Current medicines have been reviewed. I think he is taking thiamine and folate because of a history of alcohol abuse, but he has been in the detention for a long time and since he is not actively drinking and eating a reasonably good diet, there is no reason to continue these vitamins. I am going to reduce the dose of the Celexa and will discontinue it. I am not sure that he needs an antidepressant medication at all, but if he does, I would prefer a different one because of the side effect profile. TRANSINT:[id number] Voice Confirmation ID: [id number] DOCUMENT ID: [id number] SARAH MCCLURE MD at 1007 CC: [id number] DICTATION DATE: 03/16/18 1418 SHEARER OPERATOR: 03/16/18 1424 ADM IN [place] [id number] [place] [address]
--- NOTE | ~2018-03-15 | PN ---
PATIENT:DRE ÁLVAREZ MEDICAL RECORD: [id number] LOCATION:GORGE Shane ADMISSION DATE: 03/15/18 PROGRESS NOTE DATE OF SERVICE: 03/17/2018 SUBJECTIVE: The patient's case was discussed with staff. He has no new complaint. OBJECTIVE: The patient denies intent to harm himself or others. He does tolerate his medicines well. Eye contact is fair. Concentration is fair. ASSESSMENT: No change in diagnoses. PLAN: Supportive and educational interventions were made. Long-term prognosis is guarded. TRANSINT:[id number] Voice Confirmation ID: [id number] DOCUMENT ID: [id number] SARAH MCCLURE MD at 1039 CC: [id number] DICTATION DATE: 03/17/18 1154 DIGITAL FORENSIC EXAMINER: 03/17/18 1211 ADM IN [place] [id number] [place] [address]
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
[~2018-03-15 03:49] MED LIST: BUSPAR10 MG PO; CELEXA10 MG PO; CELEXA20 MG PO; CLARITIN 10 MG10 MG PO; FLOMAX0.4 MG PO; FOLIC ACID1 MG PO; KLONOPIN0.5 MG PO; KLONOPIN1 MG PO; LEXAPRO10 MG PO; MEGACE40 MG PO; MIRALAX17 GM PO; MUCINEX600 MG PO; MULTIPLE VITAMI1 TA1 PO; NAMENDA5 MG PO; PROMOD LIQUID P30 M1 PO; REMERON15 MG PO; VITAMIN B-1100 M1 PO; VITAMIN D31000 UNI2 PO
[2018-03-15] MEDS ORDERED: PEPCID20 MG PO (04:00)
[2018-03-15] MEDS ORDERED: ACETAMINOPHEN325 MG PO (04:00)
[2018-03-15] MEDS ORDERED: GEODON20 MG PO (04:01)
[2018-03-15] MEDS ORDERED: CELEXA20 MG PO (04:01)
[2018-03-15] MEDS ORDERED: KLONOPIN0.5 MG PO (04:01)
[2018-03-15] MEDS ORDERED: DULCOLAX5 MG PO (04:03)
[2018-03-15 04:54] VITALS: BP 117/66
[2018-03-15 06:06] VITALS: BP 117/66; BMI 19.6
[2018-03-15 06:11] LABS: BASOPHILS 0.3 % (0-2); EOSINOPHILS 2.8 % (0-7); HEMATOCRIT 44.1 % (42.0-54.0); HEMOGLOBIN 14.9 g/dL (13.5-17.5); IMMATURE GRANULOCYTES 0.1 % (0-5); LYMPHOCYTES 23.2 % (15-50); MCH 30.3 pg (26.0-34.0); MCHC 33.8 g/dL (31.0-37.0); MCV 89.6 fL (80.0-100.0); MEAN PLATELET VOLUME 9.4 fL (7.4-10.4); MONOCYTES 6.8 % (2-11); NEUTROPHILS 66.8 % (40-80); PLATELET COUNT 248 10x3/uL (130-400); RBC 4.92 10x6/uL (4.20-6.10); RDW 13.6 % (11.5-14.5); WBC 7.1 10x3/uL (4.8-10.8)
[2018-03-15 07:02] LABS: ALBUMIN 3.7 g/dL (3.4-5.0); ANION GAP 11.3 mmol/L (8-16); BILIRUBIN - TOTAL 0.54 mg/dL (0.2-1.3); CALCIUM 9.2 mg/dL (8.5-10.1); CARBON DIOXIDE 29.8 mmol/L (21.0-32.0); CHOL - HDL RATIO 5.9 ratio (2.3-4.9); CREATININE - SERUM 1.2 mg/dL (0.6-1.3); LDL-HDL RATIO 4.3 ratio (1.5-3.5); POTASSIUM - SERUM 4.1 mmol/L (3.5-5.1); PROTEIN - SERUM 8.3 g/dL (6.4-8.2); THYROID STIMULATING HORMONE 1.32 uIU/mL (0.36-3.74)
[2018-03-15 07:36] VITALS: BP 104/68
[2018-03-15 10:42] VITALS: BMI 19.6
[2018-03-15 19:45] VITALS: BP 114/70
[2018-03-16 06:16] LABS: VITAMIN D 25 HYDROXY 40.1 ng/mL (30.0-100.0)
[2018-03-16 07:35] LABS: RAPID PLASMA REAGIN Non Reactive (Non Reactive)
[2018-03-16 08:05] VITALS: BP 119/70
[2018-03-16 09:20] LABS: FOLATE (FOLIC ACID) - SERUM >20.0 ng/mL (>3.0)
[2018-03-16 15:06] LABS: APPEARANCE CLEAR (CLEAR); BILIRUBIN NEGATIVE (NEGATIVE); COLOR YELLOW (YELLOW); GLUCOSE NEGATIVE (NEGATIVE); KETONE NEGATIVE (NEGATIVE); NITRITE NEGATIVE (NEGATIVE); PROTEIN NEGATIVE (NEGATIVE); UROBILINOGEN NORMAL (NORMAL)
[2018-03-16 15:08] LABS: WHITE CELLS - URINE OCC /hpf (0-5)
[2018-03-16 15:09] LABS: BACTERIA FEW /hpf (NONE SEEN)
[2018-03-16 19:31] VITALS: BP 131/72
[2018-03-17 09:35] VITALS: BP 109/68
[2018-03-17 22:32] VITALS: BP 112/69
[2018-03-18 08:18] VITALS: BP 110/74
[2018-03-18 19:57] VITALS: BP 108/69
[2018-03-19 07:48] VITALS: BP 95/63
[2018-03-19] MEDS ORDERED: LINZESS145 MCG PO (14:50)
[2018-03-19 20:23] VITALS: BP 122/70
[2018-03-20 08:55] VITALS: BP 118/78
[2018-03-20 21:12] VITALS: BP 100/69
[2018-03-21 08:15] VITALS: BP 113/60
[2018-03-21 19:48] VITALS: BP 105/69
[2018-03-22 10:47] VITALS: BP 112/63
[2018-03-22 19:48] VITALS: BP 111/73
[2018-03-23 09:55] VITALS: BP 117/78
[2018-03-23 21:20] VITALS: BP 120/60
[2018-03-24 08:00] VITALS: BP 122/74
[2018-03-24 20:06] VITALS: BP 130/70
[2018-03-25 07:00] VITALS: BP 119/76
[2018-03-25 20:21] VITALS: BP 140/76
[2018-03-26 07:00] VITALS: BP 135/78
[2018-03-26 12:09] VITALS: Ht 172.7 cm; Wt 64.1 kg
[2018-03-26 19:55] VITALS: BP 122/74
[2018-03-27 07:00] VITALS: BP 130/79
[2018-03-27 19:41] VITALS: BP 129/99
[2018-03-28 10:22] VITALS: BP 116/74
[2018-03-28 20:15] VITALS: BP 140/86
[2018-03-29 09:00] VITALS: BP 131/81
== END 2018-03-29 16:35 | DRG 897 ==
LOC: D.PSYCH 03:49
PROVIDERS: Psychiatry & Neurology Psychiatry
DX: F10.97 Alcohol use, unspecified with alcohol-induced persisting dementia (principal); F03.91 Unspecified dementia, unspecified severity, with behavioral disturbance; E46 Unspecified protein-calorie malnutrition; Z68.1 Body mass index [BMI] 19.9 or less, adult; N40.0 Benign prostatic hyperplasia without lower urinary tract symptoms; M81.0 Age-related osteoporosis without current pathological fracture; E78.5 Hyperlipidemia, unspecified; K21.9 Gastro-esophageal reflux disease without esophagitis; K59.00 Constipation, unspecified; G47.00 Insomnia, unspecified; Z74.09 Other reduced mobility; E55.9 Vitamin D deficiency, unspecified; F32.9 Major depressive disorder, single episode, unspecified; F41.9 Anxiety disorder, unspecified